=== PATIENT | female | born 1965 | race Caucasian/White ===

== ENCOUNTER 2019-09-08 12:32 | Emergency (ER) | payer OTHER ==
[~2019-09-08] VITALS: Ht 172.7 cm; Wt 104.3 kg
[2019-09-08] MEDS ORDERED: AMOX1TAB5 (12:53)
[2019-09-08] MEDS ORDERED: MOTRIN 800MG (12:54)
== END 2019-09-08 14:59 | disposition home or self-care (01) ==
LOC: ER 12:32
DX: M25.571 Pain in right ankle and joints of right foot (principal)